=== PATIENT | male | born 2005 | race Caucasian/White ===

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

== ENCOUNTER → 2024-03-30 | Outpatient (CLI) | payer BC ==
[2024-03-30 11:25] LABS: Basophils # (auto) 0 10 ^3/uL (0-0.2); Basophils % (auto) 0.5 % (0.0-2.0); Eosinophils # (auto) 0.1 10 ^3/uL (0-0.8); Hemoglobin 18.3 g/dL (13.5-17.5); Mean Corpuscular Hemoglobin 29.9 pg (28.0-32.0); Monocytes # (auto) 0.4 10 ^3/uL (0-1.3)
[2024-03-30 11:27] LABS: Eosinophils % (auto) 1.9 % (0.0-7.0); Hematocrit 51.9 % (41.0-53.0); Lymphocytes # (auto) 2.5 10 ^3/uL (0.4-5.4); Lymphocytes % (auto) 39.7 % (10.0-50.0); Mean Corpuscular Hgb Conc. 35.2 g/dL (32.0-36.0); Mean Corpuscular Volume 85.2 fL (80.0-100.0); Monocytes % (auto) 6.9 % (0.0-12.0); Neutrophils # (auto) 3.2 10 ^3/uL (1.6-8.6); Nucleated Red Blood Cells % 0.6 %; Platelet Count (auto) 206 10^3/uL (140-450); Red Cell Distribution Width 12.7 % (11.8-14.3); White Blood Cell 6.2 10^3/uL (4.4-10.8)
[2024-03-30 11:52] LABS: Alanine Aminotransferase 40 U/L (7-40); Albumin 4.8 g/dL (3.2-4.8); Alkaline Phosphatase 102 U/L (46-116); Anion Gap 5 (5-15); Aspartate Aminotransferase 14 U/L (13-40); BUN/Creatinine Ratio 5.9 (10.0-20.0); Blood Urea Nitrogen 7 mg/dL (9-23); Calcium 9.9 mg/dL (8.7-10.4); Carbon Dioxide 25 mmol/L (20-30); Chloride 109 mmol/L (98-107); Cholesterol 140 mg/dL (< 200); Glucose 106 mg/dL (74-106); HDL Cholesterol 32 mg/dL (40-59); LDL Cholesterol 98 mg/dL (< 100); Potassium 4.3 mmol/L (3.5-5.1); Sodium 139 mmol/L (136-145); Triglycerides 101 mg/dL (< 150)
[2024-03-30 11:53] LABS: Bilirubin, Total 0.9 mg/dL (0.2-1.0); Total Protein 7.7 g/dL (5.7-8.2)
== END | disposition home or self-care (01) ==
LOC: LAB 11:01
PROVIDERS: ATTEND Nurse Practitioner Family
DX: R03.0 Elevated blood-pressure reading, without diagnosis of hypertension (principal); E78.5 Hyperlipidemia, unspecified
CPT/HCPCS: 36415; 80053; 80061; 84443; 85025

== ENCOUNTER → 2024-11-14 | Outpatient (CLI) | payer BC ==
[2024-11-14 09:19] LABS: Basophils # (auto) 0 10 ^3/uL (0-0.2); Basophils % (auto) 0.7 % (0.0-2.0); Eosinophils # (auto) 0.1 10 ^3/uL (0-0.8); Eosinophils % (auto) 1.3 % (0.0-7.0); Hematocrit 53.5 % (41.0-53.0); Hemoglobin 17.9 g/dL (13.5-17.5); Lymphocytes # (auto) 1.9 10 ^3/uL (0.4-5.4); Mean Corpuscular Hemoglobin 29.2 pg (28.0-32.0); Mean Corpuscular Hgb Conc. 33.4 g/dL (32.0-36.0); Mean Corpuscular Volume 87.4 fL (80.0-100.0); Monocytes # (auto) 0.4 10 ^3/uL (0-1.3); Monocytes % (auto) 6.6 % (0.0-12.0); Neutrophils # (auto) 3.6 10 ^3/uL (1.6-8.6); Neutrophils % (auto) 59.4 % (37.0-80.0); Nucleated Red Blood Cells % 0.3 %; Platelet Count (auto) 189 10^3/uL (140-450); Red Blood Cells 6.12 10^6/uL (4.5-5.90); Red Cell Distribution Width 13.2 % (11.8-14.3)
[2024-11-14 09:44] LABS: Alkaline Phosphatase 73 U/L (46-116); Anion Gap 10 (5-15); Aspartate Aminotransferase 16 U/L (13-40); Bilirubin, Total 1.1 mg/dL (0.2-1.0); Blood Urea Nitrogen 12 mg/dL (9-23); Carbon Dioxide 29 mmol/L (20-31); Chloride 102 mmol/L (98-107); Cholesterol 148 mg/dL (< 200); Glucose 103 mg/dL (74-106); LDL Cholesterol 97 mg/dL (< 100); Potassium 4.3 mmol/L (3.5-5.1); Sodium 141 mmol/L (136-145); Total Protein 7.7 g/dL (5.7-8.2); Triglycerides 92 mg/dL (< 150)
[2024-11-14 10:05] LABS: Alanine Aminotransferase 46 U/L (7-40); Albumin 5.2 g/dL (3.2-4.8); Calcium 10.6 mg/dL (8.7-10.4); HDL Cholesterol 39 mg/dL (40-59)
== END | disposition home or self-care (01) ==
LOC: LAB 08:45
PROVIDERS: ATTEND Nurse Practitioner Family
DX: E78.5 Hyperlipidemia, unspecified (principal); E66.01 Morbid (severe) obesity due to excess calories; F90.9 Attention-deficit hyperactivity disorder, unspecified type; Z00.01 Encounter for general adult medical examination with abnormal findings
CPT/HCPCS: 36415; 80053; 80061; 82306; 84443; 85025

== ENCOUNTER 2025-04-27 11:29 | Outpatient (CLI) | payer BC ==
[2025-04-27 11:57] LABS: Hematocrit 49.7 % (41.0-53.0); Hemoglobin 17.1 g/dL (13.5-17.5); Mean Corpuscular Hemoglobin 29.4 pg (28.0-32.0); Mean Corpuscular Volume 85.2 fL (80.0-100.0); Nucleated Red Blood Cells % 0.1 %
[2025-04-27 12:28] LABS: Alanine Aminotransferase 37 U/L (7-40); Albumin 4.2 g/dL (3.2-4.8); Alkaline Phosphatase 93 U/L (46-116); Anion Gap 7 (5-15); BUN/Creatinine Ratio 6.8 (10.0-20.0); Calcium 9.0 mg/dL (8.7-10.4); Carbon Dioxide 29 mmol/L (20-31); Chloride 105 mmol/L (98-107); Glucose 94 mg/dL (74-106); Potassium 4.3 mmol/L (3.5-5.1); Sodium 141 mmol/L (136-145); Total Protein 7.0 g/dL (5.7-8.2)
[2025-04-27 12:29] LABS: Bilirubin, Total 0.5 mg/dL (0.2-1.0)
[2025-04-27 12:34] LABS: Blood Urea Nitrogen 8 mg/dL (9-23)
[2025-04-27 14:19] LABS: Triglycerides 132 mg/dL (< 150)
[2025-04-27 14:21] LABS: Cholesterol 163 mg/dL (< 200); HDL Cholesterol 47 mg/dL (40-59)
== END 2025-04-27 17:00 | disposition home or self-care (01) ==
LOC: LAB 11:29
PROVIDERS: ATTEND Nurse Practitioner Family
DX: E78.5 Hyperlipidemia, unspecified (principal); N62 Hypertrophy of breast; R73.9 Hyperglycemia, unspecified; Z00.01 Encounter for general adult medical examination with abnormal findings
CPT/HCPCS: 36415; 80053; 80061; 83036; 84146; 84443; 85025